=== PATIENT | female | born 1965 | race Caucasian/White ===

== ENCOUNTER → 2016-08-16 | Outpatient (CLI) | payer OTHER ==
--- NOTE | 2016-08-16 21:46 | CT ---
EXAMINATION TYPE: CT ankle RT wo con DATE OF EXAM: 08/16/2016 7:41 PM COMPARISON: March 09, 2016 HISTORY: Fall [address] DLP: 204.[address] of the right ankle with reconstruction imaging. TECHNIQUE: Contigous axial scanning of the right ankle were obtained without IV contrast; coronal/ sa gittal reconstructions performed. FINDINGS: There is a displaced fracture noted to involve the medial process of the posterior calcaneus extendin g to the superior surface anterior to the calcaneal tubercle. Previously this fracture is predominant ly impacted however there is displacement noted at this time with displacement of 5 mm. Fracture exte nds to the inferior portion of the posterior calcaneus with mild comminution seen and thickening note d at the level of the plantar fascia. There is also thickening at the level of the Achilles tendon. T he remainder of the calcaneus is intact. Remote avulsion fracture of the lateral malleolus. Bony osteopenia is seen. There is soft tissue swelling noted about the subcutaneous tissues of the he el and medial fat pad. IMPRESSION: 1. Refracture of the posterior calcaneus with comminution seen and displacement as noted.
== END | disposition home or self-care (01) ==
LOC: RADCTMAIN 19:15
PROVIDERS: ATTEND Orthopaedic Surgery
DX: S92.001D Unspecified fracture of right calcaneus, subsequent encounter for fracture with routine healing (principal)

== ENCOUNTER 2017-03-11 15:16 | Emergency (ER) | payer OTHER ==
--- NOTE | 2017-03-11 15:42 | ED ---
General Adult HPI - General Chief complaint: Wound/Laceration Stated complaint: Fall/Leg Injury Time Seen by Provider: 03/11/17 15:25 Source: patient, RN notes reviewed Mode of arrival: ambulatory Limitations: no limitations - History of Present Illness Initial comments: This is a 51-year-old female who presents emergency Department complaining of multiple skin tears on both legs. Patient states last night in the dark she tripped over some piping [place] camp[place] and had no way of getting to an emergency department last evening. Patient states this happened about midnight last night so it is been approximately 15-1/2 hours since she had fallen. Patient states she is on Coumadin but the bleeding has stopped at all sites. Patient has multiple skin tears the worst of which is on the right distal leg. Patient has some skin tears on both upper thighs and both lower legs. She has no other injury patient is able to move her lower extremities with full range of motion and every joint patient denies any head or neck trauma. Patient denies any upper extremity pain. There are no skin tears in any other areas but her anterior legs bilaterally - Related Data Home Medications Medication Instructions Recorded Confirmed ALPRAZolam [Xanax] 1 mg PO TID PRN 01/06/15 05/14/16 DULoxetine HCL [Cymbalta] 120 mg PO DAILY 01/06/15 05/14/16 Ergocalciferol [Vitamin D2 50,000 unit PO TU 06/10/15 05/14/16 (DRISDOL)] Potassium Chloride [K-Tab ER] 40 meq PO DAILY 06/10/15 05/14/16 Gabapentin [Neurontin] 300 mg PO TID 10/25/15 05/14/16 Omeprazole 20 mg PO DAILY 10/25/15 05/14/16 predniSONE 2.5 mg PO DAILY 10/25/15 02/09/16 Aspirin [Adult Low Dose Aspirin EC] 81 mg PO DAILY 02/09/16 05/14/16 Biotin 10,000 mcg PO 02/09/16 02/09/16 Magnesium Oxide [Mag-Ox] 400 mg PO DAILY 02/09/16 05/14/16 Sodium Bicarbonate 650 mg PO DAILY 02/09/16 05/14/16 Spironolactone [Aldactone] 50 mg PO DAILY 02/09/16 05/14/16 Warfarin [Coumadin] 2.5 mg PO DIRECTED 02/09/16 05/14/16 Previous Rx's Medication Instructions Recorded Cephalexin [Keflex] 500 mg PO Q6HR #28 cap 03/11/17 Allergies Allergy/AdvReac Type Severity Reaction Status Date / Time No Known Allergies Allergy Verified 03/11/17 15:25 Review of Systems ROS Statement: Those systems with pertinent positive or pertinent negative responses have been documented in the HPI. ROS Other: All systems not noted in ROS Statement are negative. Past Medical History Past Medical History: GERD/Reflux, Hyperlipidemia, Pneumonia Additional Past Medical History / Comment(s): 06/10/15 Pt is a direct admission for IV hydration. Other HX: Severe mitral insufficiency with myxomatous mitral valve. PALPITATIONS, MITRAL STENOSIS, BULEMIA, ANOREXIA, MALNUTRITION. NEUROPATHY IN FEET, scoliosis, bilateral FOOT EDEMA at times, irregular "spotty" menses. History of Any Multi-Drug Resistant Organisms: None Reported Past Surgical History: Adenoidectomy, Orthopedic Surgery, Tonsillectomy Additional Past Surgical History / Comment(s): ORIF LT SHOULDER. TEEs-last done 01/07/15= severe MVR with EF 60%. LAPAROSCOPY. Past Anesthesia/Blood Transfusion Reactions: Postoperative Nausea & Vomiting ( PONV) Additional Past Anesthesia/Blood Transfusion Reaction / Comment(s): REQUIRES ZOFRAN FOR PONV. Past Psychological History: Anxiety, Depression Smoking Status: Former smoker Past Alcohol Use History: Occasional Past Drug Use History: None Reported - Past Family History Father Family Medical History: Cancer Additional Family Medical History / Comment(s): Father has lymphoma. Mother Family Medical History: Hypertension Additional Family Medical History / Comment(s): Mother has scoliosis. General Exam - General Exam Comments Initial Comments: GENERAL Patient is well-developed and well-nourished. Patient is in mild distress. EYES Patient's pupils are equal and round. Extraocular motion is intact SKIN Patient has multiple skin tears on her distal right leg as well as on her left knee and left thigh. NEURO The patient is alert and oriented 3 PYSCH Patient has normal interpersonal interactions. MUSCULOSKELETAL Patient has full range of motion of all 4 extremities Limitations: no limitations Course Vital Signs 03/11/17 15:23 Temperature 98.1 F Pulse Rate 86 Respiratory 20 Rate Blood Pressure 95/66 O2 Sat by Pulse 100 Oximetry Disposition Clinical Impression: Multiple skin tears Disposition: HOME SELF-CARE Condition: Good Additional Instructions: Bacitracin should be applied to the wound twice a day Prescriptions: Cephalexin [Keflex] 500 mg PO Q6HR #28 cap Referrals: Eulalia Dias DO [Primary Care Provider] - 1-2 days Time of Disposition: 15:40
[2017-03-11] MEDS ORDERED: DIPH,PERTUS(ACELL)TETVAC-LF 0.5 ML VIAL IM ONE (15:51)
[2017-03-11 16:44] VITALS: BP 106/68; PULSE 77; RESP 18; TEMP 97.8
== END 2017-03-11 16:44 | disposition home or self-care (01) ==
LOC: EC 15:16
DX: S81.012A Laceration without foreign body, left knee, initial encounter (principal); S71.112A Laceration without foreign body, left thigh, initial encounter; Z23 Encounter for immunization; K21.9 Gastro-esophageal reflux disease without esophagitis; E78.5 Hyperlipidemia, unspecified; F32.9 Major depressive disorder, single episode, unspecified; F41.9 Anxiety disorder, unspecified; Z87.891 Personal history of nicotine dependence; Z79.82 Long term (current) use of aspirin; Z79.01 Long term (current) use of anticoagulants; Z79.899 Other long term (current) drug therapy; W18.40XA Slipping, tripping and stumbling without falling, unspecified, initial encounter
CPT/HCPCS: 90471; 90715; 99283

== ENCOUNTER 2017-03-12 20:08 | Emergency (ER) | payer OTHER ==
--- NOTE | 2017-03-12 21:26 | ED ---
General Adult HPI - General Chief complaint: Skin/Abscess/Foreign Body Stated complaint: Fall-revisit Time Seen by Provider: 03/12/17 21:08 Source: patient, RN notes reviewed Mode of arrival: ambulatory Limitations: no limitations - History of Present Illness Initial comments: Patient is a pleasant 51-year-old female presenting to the emergency department secondary to bruising from her wounds. Patient was in the emergency department yesterday. Patient tripped and landed with her legs on a fire pit type area. changed her dressings around 3:00 and has had some bleeding through some of her dressings. Patient does take Coumadin and has a heart valve. Patient denies ever hitting her head or losing consciousness. No other areas of bleeding. - Related Data Home Medications Medication Instructions Recorded Confirmed ALPRAZolam [Xanax] 1 mg PO TID PRN 01/06/15 03/12/17 DULoxetine HCL [Cymbalta] 120 mg PO DAILY 01/06/15 03/12/17 Ergocalciferol [Vitamin D2 50,000 unit PO Q14D 06/10/15 03/12/17 (DRISDOL)] Potassium Chloride [K-Tab ER] 40 meq PO DAILY 06/10/15 03/12/17 Gabapentin [Neurontin] 300 mg PO TID 10/25/15 03/12/17 Omeprazole 20 mg PO DAILY 10/25/15 03/12/17 Biotin 20,000 mcg PO DAILY 02/09/16 03/12/17 Magnesium Oxide [Mag-Ox] 400 mg PO DAILY 02/09/16 03/12/17 Warfarin [Coumadin] 2.5 mg PO SUTUTHFR@209902/09/16 03/12/17 ARIPiprazole [Abilify] 5 mg PO DAILY 03/11/17 03/12/17 Calcium Carbonate/Vitamin D3 2 cap PO DAILY 03/11/17 03/12/17 [Calcium 600-Vit D3 500 Softgel] Metoprolol Tartrate [Lopressor] 12.5 mg PO BID 03/11/17 03/12/17 Midodrine [ProAmatine] 5 mg PO DAILY 03/11/17 03/12/17 Spironolactone [Aldactone] 50 mg PO DAILY 03/11/17 03/12/17 Warfarin [Coumadin] 5 mg PO MOWESA@209903/11/1703/12/17 predniSONE 5 mg PO DAILY 03/11/17 03/12/17 Allergies Allergy/AdvReac Type Severity Reaction Status Date / Time No Known Allergies Allergy Verified 03/12/17 20:49 Review of Systems ROS Statement: Those systems with pertinent positive or pertinent negative responses have been documented in the HPI. ROS Other: All systems not noted in ROS Statement are negative. Constitutional: Denies: fever Eyes: Denies: eye pain ENT: Denies: ear pain Respiratory: Denies: cough Cardiovascular: Denies: chest pain Endocrine: Denies: fatigue Gastrointestinal: Denies: abdominal pain Genitourinary: Denies: dysuria Musculoskeletal: Denies: back pain Skin: Reports: rash (Skin abrasions) Neurological: Denies: weakness Past Medical History Past Medical History: GERD/Reflux, Hyperlipidemia, Pneumonia Additional Past Medical History / Comment(s): 06/10/15 Pt is a direct admission for IV hydration. Other HX: Severe mitral insufficiency with myxomatous mitral valve. PALPITATIONS, MITRAL STENOSIS, BULEMIA, ANOREXIA, MALNUTRITION. NEUROPATHY IN FEET, scoliosis, bilateral FOOT EDEMA at times, irregular "spotty" menses. History of Any Multi-Drug Resistant Organisms: None Reported Past Surgical History: Adenoidectomy, Orthopedic Surgery, Tonsillectomy Additional Past Surgical History / Comment(s): ORIF LT SHOULDER. TEEs-last done 01/07/15= severe MVR with EF 60%. LAPAROSCOPY. Past Anesthesia/Blood Transfusion Reactions: Postoperative Nausea & Vomiting ( PONV) Additional Past Anesthesia/Blood Transfusion Reaction / Comment(s): REQUIRES ZOFRAN FOR PONV. Past Psychological History: Anxiety, Depression Smoking Status: Former smoker Past Alcohol Use History: Occasional Past Drug Use History: None Reported - Past Family History Father Family Medical History: Cancer Additional Family Medical History / Comment(s): Father has lymphoma. Mother Family Medical History: Hypertension Additional Family Medical History / Comment(s): Mother has scoliosis. General Exam Limitations: no limitations General appearance: alert, in no apparent distress Head exam: Present: atraumatic Eye exam: Present: normal appearance, PERRL ENT exam: Present: normal oropharynx Neck exam: Present: normal inspection Respiratory exam: Present: normal lung sounds bilaterally Cardiovascular Exam: Present: regular rate, normal rhythm, systolic murmur GI/Abdominal exam: Present: soft. Absent: tenderness Extremities exam: Present: other (Full anterior bilateral leg abrasions without any active bleeding.) Neurological exam: Present: alert Psychiatric exam: Present: normal affect, normal mood Skin exam: Present: abrasion Course Vital Signs 03/12/17 03/12/17 20:18 21:37 Temperature 97.4 F L Pulse Rate 81 65 Respiratory 20 18 Rate Blood Pressure 100/63 98/61 O2 Sat by Pulse 100 99 Oximetry Medical Decision Making - Medical Decision Making Dressing changes done by nursing staff. Patient reevaluated and updated. Patient advised to hold Coumadin tonight and tomorrow and have INR rechecked Sunday by her doctor with further recommendations by her doctor at that time - Lab Data Lab Results 03/12/17 Range/Units 21:32 PT 83.7 H (9.0-12.0) sec INR 8.1 H* (<1.2) APTT 58.5 H (22.0-30.0) sec Disposition Clinical Impression: Warfarin-induced coagulopathy Disposition: HOME SELF-CARE Condition: Stable Instructions: Warfarin (By mouth), Abrasion (ED), Acute Wound Care (ED) Additional Instructions: Hold Coumadin today and tomorrow. Follow-up with your doctor Sunday morning and have Coumadin level rechecked. Please have your doctor advise Coumadin dosing on Sunday based on results. Return for increased bleeding, bleeding from other areas, worsening symptoms or other concerns. Leave bandage on for 24 hours, following this wash wounds with soap and water twice daily and apply antibiotic ointment and bandage. Referrals: Eulalia Dias DO [Primary Care Provider] - 1-2 days Time of Disposition: 22:30
[2017-03-12 21:38] VITALS: RESP 18
[2017-03-12 21:59] LABS: Partial Thromboplastin Time 58.5 sec (22.0-30.0)
[2017-03-12 22:07] LABS: Prothrombin Time 83.7 sec (9.0-12.0)
[2017-03-12 22:25] LABS: INR 8.1 (<1.2)
[2017-03-12] MEDS ORDERED: PHYTONADIONE ORAL 5 MG/5 ML ORAL.SYRG PO STA (22:27)
[2017-03-12 22:49] VITALS: BP 100/60; PULSE 71; TEMP 97.2
== END 2017-03-12 22:49 | disposition home or self-care (01) ==
LOC: EC 20:08
DX: S80.812D Abrasion, left lower leg, subsequent encounter (principal); S80.811D Abrasion, right lower leg, subsequent encounter; D68.9 Coagulation defect, unspecified; T45.515A Adverse effect of anticoagulants, initial encounter; E78.5 Hyperlipidemia, unspecified; K21.9 Gastro-esophageal reflux disease without esophagitis; F32.9 Major depressive disorder, single episode, unspecified; F41.9 Anxiety disorder, unspecified; Z87.891 Personal history of nicotine dependence; Z79.52 Long term (current) use of systemic steroids; Z79.01 Long term (current) use of anticoagulants; Z79.899 Other long term (current) drug therapy
CPT/HCPCS: 36415; 85610; 85730; 99283

== ENCOUNTER → 2018-09-13 | Outpatient (CLI) | payer BC, OTHER ==
--- NOTE | 2018-09-13 14:39 | US ---
EXAMINATION TYPE: US kidneys/renal and bladder DATE OF EXAM: 09/13/2018 COMPARISON: US 2014 CLINICAL HISTORY: N18.3 CKD Stage3. CKD stage 3 EXAM MEASUREMENTS: Right Kidney: 9.0 x 3.5 x 4.2 cm Left Kidney: 9.0 x 4.8 x 3.8 cm Right Kidney: Extrarenal pelvis is seen, 2 small cysts with largest measuring 1.4cm Left Kidney: 2 small cysts with largest measuring 1.3cm Bladder: wnl Bilateral Jets seen: yes No cortical renal thinning is seen. No hydronephrosis present of either kidney. Urinary bladder appea rs anechoic. IMPRESSION: Benign appearing bilateral renal cysts. No hydronephrosis or nephrolithiasis of either kidney. No cor tical renal thinning.
== END ==
LOC: RADUSWWP 13:20
PROVIDERS: ATTEND Internal Medicine Nephrology
DX: N28.1 Cyst of kidney, acquired (principal)
CPT/HCPCS: 76770

== ENCOUNTER → 2019-08-21 | Outpatient (CLI) | payer OTHER ==
[2019-08-21 10:21] LABS: Prothrombin Time 74.4 sec (9.0-12.0)
[2019-08-21 10:28] LABS: INR 7.2 (<1.2)
== END | disposition home or self-care (01) ==
LOC: LABWHC1 09:17
PROVIDERS: ATTEND Nurse Practitioner Adult Health
DX: Z48.812 Encounter for surgical aftercare following surgery on the circulatory system (principal); Z95.2 Presence of prosthetic heart valve
CPT/HCPCS: 36415; 85610

== ENCOUNTER → 2020-08-05 | Outpatient (CLI) | payer OTHER ==
[~2020-08-05] MED LIST: DENOSUMAB 60 MG/ML 1 ML SYRINGE SQ NR
[2020-08-05 06:19] VITALS: BP 120/80; PULSE 110; RESP 18
== END | disposition home or self-care (01) ==
LOC: PROCWHC3 07:58
PROVIDERS: ATTEND Physician Assistant
DX: M81.0 Age-related osteoporosis without current pathological fracture (principal)
CPT/HCPCS: 96372

== ENCOUNTER → 2020-11-22 | Outpatient (CLI) | payer OTHER ==
--- NOTE | 2020-11-23 04:29 | MR ---
EXAMINATION TYPE: MR shoulder LT wo con DATE OF EXAM: 11/22/2020 COMPARISON: None HISTORY: LT upper shoulder pain Multiplanar multiecho imaging of the left shoulder was performed without contrast. There is prosthetic humeral head. There is considerable metal artifact that obscures the bone detail. As best as one can tell the glenoid patsy appear intact. There is no retraction of the supraspinatus tendon. The attachment on the humeral head is obscured by metal artifact. There is small shoulder maxine int effusion. The scapula appears intact. There is no evidence of a fracture. The AC joint is intact. There is no subacromial impingement. Subscapularis tendon is obscured by metal artifact. IMPRESSION: Limited exam. No retraction of the supraspinatus tendon. No fracture seen. Shoulder joint effusion.
== END | disposition home or self-care (01) ==
LOC: RADMRIMAIN 15:17
PROVIDERS: ATTEND Orthopaedic Surgery Sports Medicine
DX: M25.412 Effusion, left shoulder (principal)

== ENCOUNTER → 2023-10-09 | Outpatient (CLI) | payer OTHER ==
--- NOTE | 2023-10-10 10:55 | FL ---
EXAMINATION TYPE: FL arthrogram shoulder LT DATE OF EXAM: 10/09/2023 2:00 PM CLINICAL INDICATION:Female, 57 years old with history of M25.512 PAIN IN LEFT SHOULDER; , H COMPARISON: MR 11/22/2020 TECHNIQUE/PROCEDURE: This study was performed by Dr. Hamilton. After the procedure was explained and i nformed consent was obtained from the patient, the patient was prepped and draped in the usual steril e fashion. 1% Lidocaine was used as local anesthetic using a 25 gauge needle. A 25 gauge needle was t hen advanced into the glenohumeral joint using fluoroscopic guidance. Approximately 11 cc of contrast was injected into the joint (an admixture of Isovue 370, and sterile saline). The needle was then r emoved and a Band-Aid was applied. The patient tolerated procedure well. The patient was then sent to the MR unit for an MRI exam. Fluoroscopic time:0.55 min Fluoroscopic images: 1 Radiographs taken: 0 FINDINGS: Contrast was seen filling the glenohumeral joint initially. As the contrast filled the chivo nt note was made of filling of the subcoracoid bursa. No extracapsular contrast collections were not ed. IMPRESSION: Successful left shoulder arthrogram. CT left shoulder report to follow.
== END | disposition home or self-care (01) ==
LOC: RADFLMAIN 12:58
PROVIDERS: ATTEND Family Medicine
DX: M75.80 Other shoulder lesions, unspecified shoulder (principal); M25.512 Pain in left shoulder
CPT/HCPCS: 23350; 73040; 73201; Q9967

== ENCOUNTER → 2024-12-09 | Outpatient (CLI) | payer MEDICARE, OTHER ==
--- NOTE | 2024-12-10 08:15 | MR ---
MRI CERVICAL SPINE: CLINICAL HISTORY: Neck and left shoulder pain TECHNIQUE: Multiplanar, multisequence imaging of the cervical spine is performed without and with IV contrast, 5 cc of gadolinium was given intravenously. COMPARISON: None. FINDINGS: There is levoconvex scoliosis centered in the upper thoracic spine. Incidental probable lip odalys along the left scalene muscles coronal image 5. Sagittal images of the cervical spine show the cr aniocervical junction to appear within normal limits. There is grade 1 retrolisthesis C3 on C4 and to lesser degree C5-C6 The cervical and upper thoracic spinal cord is normal in caliber and signal. T he vertebral body heights are normal. There is moderate disc space narrowing with heterogeneous Modic type III endplate changes the anterior superior C4 level. There is moderate disc space narrowing at C5-6 level. No suspicious postcontrast enhancement is seen. Axial images at C2-C3 level show mild asymmetric right-sided neural foraminal narrowing due to uncove rtebral facet spurring. Axial images at C3-C4 levels with spondylolisthesis with posterior left paracentral spur disc complex effacing the anterior thecal sac and uncovertebral degenerative change causing mild left-sided neura l foraminal narrowing. Axial images at C4-C5 levels with central disc protrusion mildly effacing the anterior thecal sac and bilateral facet degenerative change but neural foramina are patent. Axial images at C5-C6 level shows subtle spondylolisthesis with broad-based left paracentral disc pro trusion effacing the anterior thecal sac and causing mild bilateral neural foraminal narrowing. Axial images at C6-C7 level show focal right paracentral disc protrusion effacing the anterior thecal sac, bilateral neural foramina are patent. Axial images at C7-T1 level appear within normal limits. IMPRESSION: Scoliosis with multilevel spondylolisthesis and degenerative change in the cervical spine as detailed above. [facility], , 12/10/2024 8:13 AM
== END | disposition home or self-care (01) ==
LOC: RADMRIMAIN 13:39
PROVIDERS: ATTEND Orthopaedic Surgery
DX: M48.02 Spinal stenosis, cervical region; M50.223 Other cervical disc displacement at C6-C7 level; M41.82 Other forms of scoliosis, cervical region; M47.812 Spondylosis without myelopathy or radiculopathy, cervical region; M43.12 Spondylolisthesis, cervical region; X58.XXXA Exposure to other specified factors, initial encounter
CPT/HCPCS: 72156; A9585